=== PATIENT | female | born 1990 | race Caucasian/White ===

== ENCOUNTER 2017-07-09 12:59 | Emergency (ER) | payer OTHER ==
[~2017-07-09] VITALS: Ht 172.7 cm; Wt 57.6 kg
[2017-07-09] MEDS ORDERED: NAPROSYN500 MG PO (13:17)
[2017-07-09] MEDS ORDERED: 'PARAFON FORTE500 M1 PO (13:17)
== END 2017-07-09 15:10 | disposition home or self-care (01) ==
LOC: ED 12:59
DX: S13.9XXA Sprain of joints and ligaments of unspecified parts of neck, initial encounter (principal); R03.0 Elevated blood-pressure reading, without diagnosis of hypertension; V49.88XA Car occupant (driver) (passenger) injured in other specified transport accidents, initial encounter; Y93.89 Activity, other specified; Y92.413 State road as the place of occurrence of the external cause; Y99.9 Unspecified external cause status